=== PATIENT | male | born 1995 | race Caucasian/White ===

== ENCOUNTER 2017-03-25 02:25 | Emergency (ER) | payer MEDICAID, OTHER ==
[2017-03-25 02:27] VITALS: BP 144/82; PULSE 92; RESP 16; TEMP 98.6; O2SAT 100
--- NOTE | 2017-03-25 03:52 | PD ---
HPI Chief Complaint: Skin Problem Time Seen by Provider: 02:47 Travel History International Travel<30 days: No Contact w/Intl Traveler<30days: No Traveled to known affect area: No History of Present Illness HPI 22yo M with no PMH presents to the ED with c/o bite in left inner thigh. States he noticed it yesterday and it was small and purplish. States there was a small amount of pus that came out. States there is redness surrounding the bite. Does not know what bit him but has been trying to squeeze it. Denies any fever, chest pain, sob, n/v, abdominal pain, testicular pain, penile discharge, focal weakness or numbness. PFSH Past Medical History Depression: Yes Psychiatric: Yes (POLYSUBSTANCE ABUSE) Social History Alcohol Use: Yes (EVERY DAY) Tobacco Use: Yes Substance Use: Yes (POT, HEROIN, PILLS, OPIODS, COCAINE DAILY) Allergies-Medications (Allergen,Severity, Reaction): Coded Allergies: No Known Allergies (Unverified , 03/25/17) Reported Meds & Prescriptions Reported Meds & Active Scripts Active Ibuprofen 600 Mg Tab 600 Mg PO Q8H PRN Bactrim DS (Sulfamethoxazole-Trimethoprim) 800-160 Mg Tab 1 Tab PO BID Review of Systems Except as stated in HPI: all other systems reviewed are Neg Physical Exam Narrative GENERAL: 22yo M not in distress. SKIN: +0.5cm circular nodule that looks like a bite with surrounding erythema around 9cm by 3cm in left medial thigh. There is a small amount of fluctuance over the nodule but it is open. HEAD: Atraumatic. Normocephalic. EYES: Pupils equal and round. No scleral icterus. No injection or drainage. ENT: No nasal bleeding or discharge. Mucous membranes pink and moist. NECK: Trachea midline. No JVD. CARDIOVASCULAR: Regular rate and rhythm. No murmur appreciated. RESPIRATORY: No accessory muscle use. Clear to auscultation. Breath sounds equal bilaterally. GASTROINTESTINAL: Abdomen soft, non-tender, nondistended. Hepatic and splenic margins not palpable. MUSCULOSKELETAL: No obvious deformities. No clubbing. No cyanosis. No edema. NEUROLOGICAL: Awake and alert. No obvious cranial nerve deficits. Motor grossly within normal limits. Normal speech. PSYCHIATRIC: Appropriate mood and affect; insight and judgment normal. Data Data Last Documented VS Vital Signs Date Time Temp Pulse Resp B/P Pulse Ox O2 Delivery O2 Flow Rate FiO2 03/25/17 02:27 98.6 92 16 144/82 100 Room Air Orders Ed Poc Ultrasound (03/25/17 ) Sulfamet-Trimeth Ds 800-160 Mg (Bactrim (03/25/17 04:00) Ibuprofen (Motrin) (03/25/17 04:00) MDM Medical Decision Making Medical Screen Exam Complete: Yes Emergency Medical Condition: Yes Interpretation(s) Vital Signs Date Time Temp Pulse Resp B/P Pulse Ox O2 Delivery O2 Flow Rate FiO2 03/25/17 02:27 98.6 92 16 144/82 100 Room Air Differential Diagnosis Cellulitis vs. folliculitis vs. bug bite vs. abscess Narrative Course 22yo M with cellulitis from a bug bite in left thigh/groin area. Pt is well appearing and has no fever or vomiting. Pt has not seen anyone for this yet. US did not show any deep fluid collections. Pt states it was draining pus and no large fluid collection seen on ultrasound so recommend warm compresses to help it drain and oral antibiotics. Pt given bactrim and ibuprofen here which helped with pain. Will try outpatient treatment first. Strict return precautions given. Procedures Procedure Narrative Emergency department soft-tissue/musculoskeletal ultrasound was performed with patient consent. Linear probe was used in the transverse and sagittal views in the area of interest without evidence of soft-tissue foreign bodies or abscess. Diagnosis Primary Impression: Cellulitis Qualified Code: L03.116 - Cellulitis of left lower extremity Patient Instructions: General Instructions Departure Forms: Tests/Procedures Additional Instructions: Please return to the ED if symptoms worsening while on antibiotics. Please follow up with your PMD in 3-7 days. Med/Other Pt SpecificInfo: Prescription(s) given Scripts Ibuprofen 600 Mg [id number] Mg PO Q8H PRN (PAIN) #20 TAB Ref 0 Prov:EricYing 03/25/17 Sulfamethoxazole-Trimethoprim (Bactrim DS)800-160 Mg Tab1 Tab PO BID #14 TAB Ref 0 Prov:ReyesYing 03/25/17 Disposition: 01 DISCHARGE HOME Condition: Stable Ying Reyes Mar 25, 2017 03:52
[2017-03-25] MEDS ORDERED: SULFAMETHOXAZOLE-TRIMETHOPRIM DS 800-160 MG TAB PO ONE (04:00)
[2017-03-25] MEDS ORDERED: IBUPROFEN 600 MG TAB PO ONE (04:00)
[2017-03-25] MEDS ORDERED: BACT800T5 PO (04:44)
[2017-03-25] MEDS ORDERED: IBUP-232 PO (04:44)
== END 2017-03-25 05:09 | disposition home or self-care (01) ==
LOC: NEPC 02:25
DX: L03.116 Cellulitis of left lower limb (principal)
CPT/HCPCS: 99283